=== PATIENT | male | born 1995 | race Caucasian/White ===

== ENCOUNTER → 2020-12-02 | Outpatient (REF) ==
--- NOTE | 2020-12-02 11:26 | REP ---
INDICATION: PAIN. COMPARISON: . TECHNIQUE: Upright PA and lateral chest. FINDINGS: The lung richardson are clear. Cardiac size is normal. The fab, mediastinum and skeletal structures are unremarkable. IMPRESSION: Essentially negative PA and lateral chest <Electronically signed by Wellington Turner > 12/02/20 112
--- NOTE | 2020-12-02 11:27 | REP ---
INDICATION: PAIN. COMPARISON: None. TECHNIQUE: There are two views. FINDINGS: There is no nasal bone fracture. The visualized orbital rims are unremarkable. There are no air-fluid levels in the paranasal sinuses. IMPRESSION: Essentially negative nasal bone series. <Electronically signed by Wellington Turner > 12/02/20 [id number]
--- NOTE | 2020-12-02 13:47 | REP ---
INDICATION: PAIN. COMPARISON: None. TECHNIQUE: There are three views. FINDINGS: The paranasal sinuses are normally pneumatized. There are no air-fluid levels. There is no mucosal thickening. IMPRESSION: Essentially negative paranasal sinus series. <Electronically signed by Wellington Turner > 12/02/20 [id number]
== END ==
LOC: M PLAIMG 09:55
PROVIDERS: ATTEND Internal Medicine
DX: Z00.00 Encounter for general adult medical examination without abnormal findings (principal)